=== PATIENT | female | born 1975 | race African-American/Black ===

== ENCOUNTER 2021-02-09 07:49 | Emergency (ER) | payer OTHER ==
[2021-02-09 08:00] VITALS: BP 163/102; PULSE 85; BMI 37.1
[2021-02-09 08:01] VITALS: TEMP 97.7
[2021-02-09 09:51] LABS: BASO % 0.6 % (0-2.0); EOS % 0.7 % (0-4.5); HEMOGLOBIN 13.6 GM/dL (10.7-15.3); LYMPH % 16.6 % (8-40); MCH 29.6 pg (25.7-33.7); MCHC 33.1 g/dl (32.0-36.0); MEAN CELL VOLUME 89.3 fl (80-96); MONO % 6.1 % (3.8-10.2); PLATELET COUNT 334 10^3/uL (134-434); RBC 4.59 M/mm3 (3.60-5.2); RDW 13.2 % (11.6-15.6); WHITE BLOOD COUNT 12.5 K/mm3 (4.0-10.0)
[2021-02-09 09:57] LABS: INR 1.19 (0.83-1.09); PROTHROMBIN TIME (PATIENT) 13.3 SEC (9.7-13.0)
[2021-02-09 10:00] LABS: ACTIVATED PTT 28.8 SECONDS (25.2-36.5)
[2021-02-09 10:46] LABS: CHLORIDE 103 mmol/L (98-107); SODIUM 139 mmol/L (136-145)
[2021-02-09 10:48] LABS: ANION GAP 9 MMOL/L (8-16); BLOOD UREA NITROGEN 13.4 mg/dL (7-18); CALCIUM 9.2 mg/dL (8.5-10.1); CO2 27 mmol/L (21-32); GLUCOSE,RANDOM 245 mg/dL (74-106)
[2021-02-09 10:49] LABS: ALBUMIN 3.6 g/dl (3.4-5.0)
[2021-02-09 10:51] LABS: SGOT/AST 8 U/L (15-37)
[2021-02-09 10:52] LABS: CREATININE 1.1 mg/dL (0.55-1.3); SGPT/ALT 15 U/L (13-61)
[2021-02-09 10:53] LABS: BILIRUBIN,TOTAL 0.5 mg/dL (0.2-1); TOT PROT 7.4 g/dl (6.4-8.2)
[2021-02-09 10:54] LABS: ALK PHOS 80 U/L (45-117)
[2021-02-09] MEDS ORDERED: LISINOPRIL 20 MG TABLET PO ONE (14:34)
[2021-02-09] MEDS ORDERED: ASPIRIN 81 MG CHEWABLE TABLETS PO ONE (14:34)
[2021-02-09] MEDS ORDERED: INSULIN SLIDING SCALE (NOVOLOG) 1 VIAL SQ SCH (16:30)
[2021-02-09] MEDS ORDERED: METOPROLOL TARTRATE 25 MG TABLET (FP) PO SCH (22:00)
[2021-02-09] MEDS ORDERED: HEPARIN NA (PORCINE) 5,000 UNITS/ML 1ML VIAL SQ SCH (22:00)
[2021-02-09] MEDS ORDERED: INSULIN (LEVEMIR) 100 UNITS/ML UNITS SQ SCH (22:00)
[2021-02-09] MEDS ORDERED: ATORVASTATIN CA 10 MG TABLET (FP) PO SCH (22:00)
[2021-02-10] MEDS ORDERED: ASPIRIN COATED 81 MG TABLET.EC PO SCH (10:00)
[2021-02-10] MEDS ORDERED: LISINOPRIL 20 MG TABLET PO SCH (10:00)
[2021-02-10 19:06] LABS: SARS-CoV-2 NAA Not Detected (Not Detected)
== END 2021-02-09 15:47 | disposition left against medical advice (07) ==
LOC: JER 07:49
DX: R07.9 Chest pain, unspecified (principal)
CPT/HCPCS: 36415; 71045-TC-FY; 71275-TC; 80053; 82550; 82962; 84484; 84703; 85025; 85379; 85610; 85730; 87804; 93005; 93010; 99285-25; C9803; Q9967; U0003; U0005